=== PATIENT | female | born 1940 | race Caucasian/White ===

== ENCOUNTER → 2017-12-20 | Outpatient (CLI) | payer MEDICARE, OTHER | LOC: CARD 14:52 | PROVIDERS: ATTEND Internal Medicine Cardiovascular Disease | DX: I10 Essential (primary) hypertension (principal); D64.9 Anemia, unspecified; R06.00 Dyspnea, unspecified; R94.31 Abnormal electrocardiogram [ECG] [EKG] | CPT/HCPCS: 93306 ==

== ENCOUNTER → 2017-12-20 | Outpatient (CLI) | payer MEDICARE, OTHER ==
--- NOTE | 2017-12-20 13:22 | Diagnostic Imaging Report ---
EXAMINATION: PA and lateral Chest. INDICATION: Shortness of breath. COMPARISON: There are no prior studies available for comparison. FINDINGS: The heart size is at the upper limits of normal or slightly enlarged. There is a vague roughly 2 x 2 cm area of increased density along the periphery of the left lung base just superior to the left heart border. This finding is difficult to identify on the lateral view. This density could be related to an area of pneumonia/atelectasis. The possibility that this is secondary to a mass lesion would be less likely but should still be considered. Unless there are previous chest examinations available to demonstrate that this finding is stable, then CT of the chest would be recommended for further study. There is also a small 1.2 cm oval nodule in the right costophrenic angle. This is only well-visualized on the PA view as well. I suspect that this is a benign process, but this finding could also be further evaluated by either comparison to previous exams or a followup CT chest exam. The lungs are otherwise clear. There is no sign of failure, pneumonia, or pleural effusion. The mediastinum is not widened. The osseous structures are intact. IMPRESSION: 1. The roughly 2 x 2 cm area of increased density along the periphery of the left lung base is of uncertain etiology. There is also a small nodular density in the right costophrenic angle. Unless there are previous chest exams available to demonstrate that these findings are stable, then CT of the chest would be recommended for further study. 2. There is no acute cardiopulmonary abnormality noted otherwise. Dictated by: Dictated on workstation # [id number]
== END ==
LOC: RAD 11:59
PROVIDERS: ATTEND Nurse Practitioner Family
DX: J45.909 Unspecified asthma, uncomplicated (principal)
CPT/HCPCS: 71046

== ENCOUNTER → 2018-10-18 | Outpatient (CLI) | payer MEDICARE, OTHER ==
--- NOTE | 2018-10-18 12:50 | Diagnostic Imaging Report ---
PROCEDURE: CT chest without contrast. TECHNIQUE: Multiple contiguous axial images were obtained through the chest without the use of intravenous contrast. INDICATION: Shortness of air and chronic bronchitis. No prior studies are available for comparison. No axillary lymphadenopathy is seen. Hilar and mediastinal dilation is limited without intravenous contrast but no gross abnormality is identified. There are some coronary arterial calcifications present. No pericardial or pleural fluid is detected. Central airways are patent. Minimal nodularity in the right lung apex is identified. Several small nodules are present largest approximately 5 mm and indeterminate. There appears to be some infiltrate or atelectasis in the medial portion of the right middle lobe. Several tiny nodules in the superior segment right lower lobe are seen. There is some minimal bronchiectasis involving bilateral lower lobes with some associated linear parenchymal opacities consistent with some scarring or subsegmental atelectasis. There is some mild cylindrical bronchiectasis involving the medial right middle lobe as well and some bronchiectasis involving the lingula. No dominant mass is seen. Upper abdomen is unremarkable. IMPRESSION: There appears to be some bronchiectasis bilaterally with micro-nodularity in the right upper lobe apex as well as the right lower lobe with nonspecific areas of infiltrate or scarring/atelectasis in the right middle lobe, lingula and bilateral lower lobes. Followup could be performed to confirm stability. No other significant abnormality is seen. Dictated by: Dictated on workstation # [id number]
== END ==
LOC: RAD 11:29
PROVIDERS: ATTEND Nurse Practitioner Family
DX: J44.9 Chronic obstructive pulmonary disease, unspecified (principal)
CPT/HCPCS: 71250

== ENCOUNTER → 2018-10-24 | Outpatient (CLI) | payer MEDICARE, OTHER ==
--- NOTE | 2018-10-24 17:33 | Diagnostic Imaging Report ---
EXAM: RENAL ULTRASOUND DATE: October 24, 2018. COMPARISON: None. INDICATION: 78-year-old female, history of renal malignancy. PROCEDURE: Two-dimensional grayscale and color doppler examination of the kidneys is performed. FINDINGS: Right kidney: There is no sonographically demonstrated solid or cystic right renal mass. No hydronephrosis. The right kidney measures 9.8 cm x 4.2 x 5.8 cm. Left kidney: Left kidney is absent. There is no identified mass on ultrasound evaluation of the left renal fossa. Bladder: Unremarkable. IMPRESSION: 1. Unremarkable sonographic appearance of the right kidney. 2. No sonographically visible mass in the left renal fossa. 3. Unremarkable sonographic appearance of the urinary bladder. Dictated by: Dictated on workstation # [id number]
== END ==
LOC: RAD 12:15
PROVIDERS: ATTEND Urology
DX: Z85.528 Personal history of other malignant neoplasm of kidney (principal); Z90.5 Acquired absence of kidney
CPT/HCPCS: 76775

== ENCOUNTER → 2018-12-14 | Outpatient (CLI) | payer MEDICARE, OTHER ==
[2018-12-14 14:17] LABS: BASOPHILS % (AUTO) 0 % (0-10); EOSINOPHILS % (AUTO) 1 % (0-10); HEMATOCRIT 41 % (35-52); HEMOGLOBIN 13.6 G/DL (11.5-16.0); LYMPHOCYTES # (AUTO) 0.7 X 10^3 (1.0-4.0); LYMPHOCYTES % (AUTO) 15 % (12-44); MEAN CORPUSCULAR HEMOGLOBIN 30 PG (25-34); MEAN CORPUSCULAR HGB CONC 34 G/DL (32-36); MEAN CORPUSCULAR VOLUME 89 FL (80-99); MEAN PLATELET VOLUME 9.5 FL (7.4-10.4); MONOCYTES # (AUTO) 0.6 X 10^3 (0.0-1.0); MONOCYTES % (AUTO) 12 % (0-12); NEUTROPHILS # (AUTO) 3.4 X 10^3 (1.8-7.8); NEUTROPHILS % (AUTO) 72 % (42-75); PLATELET COUNT 245 10^3/uL (130-400); RED CELL DISTRIBUTION WIDTH 13.6 % (10.0-14.5); WHITE BLOOD COUNT 4.8 10^3/uL (4.3-11.0)
--- NOTE | 2018-12-14 18:48 | Diagnostic Imaging Report ---
INDICATION: Productive cough. Comparison made with prior examination 12/20/2017. FINDINGS: Heart size is normal. Mediastinum is unremarkable. There is no pleural effusion or pneumothorax. There is some unchanged bilateral perihilar scarring. IMPRESSION: No acute cardiopulmonary abnormality. Unchanged bilateral perihilar scarring. Dictated by: Dictated on workstation # [id number]
== END ==
LOC: RAD 14:02
PROVIDERS: ATTEND Nurse Practitioner Family
DX: J44.9 Chronic obstructive pulmonary disease, unspecified (principal); J98.4 Other disorders of lung; I27.0 Primary pulmonary hypertension
CPT/HCPCS: 36415; 71046; 85025; 87070; 87205

== ENCOUNTER → 2019-01-03 | Outpatient (CLI) | payer MEDICARE, OTHER ==
[~2019-01-03] MED LIST: ALBU1.25 INH; ASCO10006 PO; EST30C VG; FESO8TAB PO; FLUT9.9S NS; LACT1CAP8 PO; LEVO50TA6 PO; LOSA50TA63 PO; METH1POW32 MC; METO-370 PO; NITR100C PO; SPIR50TA4 PO; TRAM50TA2 PO; VENL150C PO
== END | disposition home or self-care (01) ==
LOC: PREOP 05:36
PROVIDERS: ATTEND Internal Medicine Critical Care Medicine
DX: Z01.818 Encounter for other preprocedural examination (principal)

== ENCOUNTER 2019-01-04 06:43 | Day surgery (SDC) | payer MEDICARE, OTHER ==
[~2019-01-04] VITALS: Ht 167.6 cm; Wt 63.5 kg
[2019-01-04] MEDS ORDERED: LIDOCAINE JELLY 2% 6 ML SYRINGE TOP ONE (06:44)
[2019-01-04] MEDS ORDERED: LIDOCAINE PF 1% 2 ML VIAL (OR ONLY) IJ ONE (06:44)
[2019-01-04] MEDS ORDERED: LIDOCAINE PF 2% 5 ML (XYLOCAINE) VIAL INJ ONE (06:44)
[2019-01-04] MEDS ORDERED: NS IV 500 ML 500 ML ONE (07:00)
[2019-01-04] MEDS ORDERED: NS IV 500 ML 500 ML IV PRN (07:05)
[2019-01-04] MEDS ORDERED: fentaNYL INJECTION 100 MCG/2 ML AMP IVP ONE (07:15)
[2019-01-04] MEDS ORDERED: NALOXONE 0.4 MG/ML 1 ML (NARCAN) VIAL IVP PRN (07:15)
[2019-01-04] MEDS ORDERED: FLUMAZENIL (ROMAZICON) 0.1 MG/ML 5 ML VIAL INJ PRN (07:15)
[2019-01-04] MEDS ORDERED: MIDAZOLAM 2 MG/2 ML (VERSED) VIAL IVP ONE (07:15)
[2019-01-04 07:26] VITALS: BP 155/91
[2019-01-04] MEDS ORDERED: MIDAZOLAM 2 MG/2 ML (VERSED) VIAL ONE ×3 (07:36)
[2019-01-04] MEDS ORDERED: fentaNYL INJECTION 100 MCG/2 ML AMP ONE (07:36)
--- NOTE | 2019-01-04 08:47 | Pulmonary Procedures ---
Pulmonary Procedures Date of Procedure Date of Service: Jan 04, 2019 Bronch Bronchoscopy with fluoroscopy right lung wash, bronchoalveolar lavage (BAL) RML , and ERIK, transbronchial brushes ERIK and RML for cytology and fungal . Preop DX bronchiectasis Postop DX: same Complications: none After informed consent obtained and formal time out pt was sedated using Fentanyl and Versed. Bronchoscope was advanced through the nare and vocal cords. 1% lidocaine was used to anesthetize vocal cords, epiglottis, jovita, and left/right main stem bronchus. An anatomical tour was undertaken down to the segmental bronchi bilaterally. No endobronchial lesions noted. Bronchoscopy with fluoroscopy right lung wash, bronchoalveolar lavage (BAL) RML, and ERIK, transbronchial brushes ERIK and RML for cytology and fungal . Pt tolerated procedure well. No complications noted. Stat CXR is pending. ROSSY AVINA DO Jan 04, 2019 08:47
--- NOTE | 2019-01-04 09:52 | Diagnostic Imaging Report ---
INDICATION: Status post bronchoscopy. TIME OF EXAM: 8:55 AM Correlation is made with prior study from 12/14/2018. FINDINGS: The heart is enlarged, but stable. No pneumothorax is identified status post bronchoscopy. No infiltrate is seen. There is no effusion. IMPRESSION: No evidence of pneumothorax. Dictated by: Dictated on workstation # [id number]
--- NOTE | 2019-01-04 12:15 | Diagnostic Imaging Report ---
Indication: Fluoroscopy for bronchoscopy Fluoroscopy was provided for Dr. Romero during bronchoscopy. 19 seconds of fluoroscopy was utilized. Impression: Fluoroscopy during bronchoscopy. Dictated by: Dictated on workstation # [id number]
== END 2019-01-04 09:55 | disposition home or self-care (01) ==
LOC: ENDO 06:43
PROVIDERS: ATTEND Internal Medicine Critical Care Medicine
DX: J47.9 Bronchiectasis, uncomplicated (principal); J44.9 Chronic obstructive pulmonary disease, unspecified; I27.20 Pulmonary hypertension, unspecified; Z79.899 Other long term (current) drug therapy
CPT/HCPCS: 71045; 87015; 87070; 87077; 87101; 87116; 87184; 87205; 87206; 88112; 88305; 88312; 94640

== ENCOUNTER → 2019-01-15 | Outpatient (CLI) | payer MEDICARE, OTHER | LOC: LAB 14:24 | PROVIDERS: ATTEND Nurse Practitioner Family | DX: R06.02 Shortness of breath (principal); J45.909 Unspecified asthma, uncomplicated; J44.9 Chronic obstructive pulmonary disease, unspecified; I27.0 Primary pulmonary hypertension; Z22.39 Carrier of other specified bacterial diseases | CPT/HCPCS: 36415; 82784 ==

== ENCOUNTER → 2019-03-20 | Outpatient (CLI) | payer MEDICARE, OTHER | LOC: RAD 15:11 | PROVIDERS: ATTEND Pediatrics | DX: Z12.31 Encounter for screening mammogram for malignant neoplasm of breast (principal) | CPT/HCPCS: 77067 ==

== ENCOUNTER → 2019-04-30 | Outpatient (CLI) | payer MEDICARE, OTHER ==
--- NOTE | 2019-04-30 14:10 | Diagnostic Imaging Report ---
PROCEDURE: CT chest without contrast. TECHNIQUE: Multiple contiguous axial images were obtained through the chest without the use of intravenous contrast. Auto Exposure Controls were utilized during the CT exam to meet ALARA standards for radiation dose reduction. INDICATION: Asthma, followup pulmonary nodule. COMPARISON: CT chest of 10/18/2018. FINDINGS: Lungs and airway: No endoluminal nodule within the trachea. Chronic subsegmental bronchiectasis within the medial basilar segments of the bilateral lower lobes. There is also subsegmental bronchiectasis within the lingula and middle lobe. Associated soft tissue nodularity in the left lower lobe bronchiectasis is unchanged. Additional scattered micronodularity is unchanged. No enlarging pulmonary nodule to suggest clinically active lung cancer. Pleura: No pleural effusion or pneumothorax. Heart and mediastinum: Visualized aspects of the thyroid are normal. No supraclavicular or axillary lymphadenopathy. No mediastinal, discrete hilar or juxtaphrenic lymphadenopathy. Stable enlargement of cardiac silhouette with trace pericardial effusion. Mild ectasia of the ascending aorta is also unchanged measuring up to 3.8 cm. Upper abdomen: No acute abnormality in the upper abdomen. Left nephrectomy. Musculoskeletal: No lytic or blastic skeletal lesions. IMPRESSION: 1. Unchanged multifocal chronic bronchiectasis and pulmonary micronodularity. This combination of findings likely due to sequelae of prior infection. 2. No features of clinically active lung cancer. 3. Unchanged mild ectasia of the ascending aorta measuring up to 3.8 cm. Dictated by: Dictated on workstation # [id number]
== END ==
LOC: RAD 11:25
PROVIDERS: ATTEND Nurse Practitioner Family
DX: J44.9 Chronic obstructive pulmonary disease, unspecified (principal); I77.810 Thoracic aortic ectasia; R91.1 Solitary pulmonary nodule; Z22.39 Carrier of other specified bacterial diseases
CPT/HCPCS: 71250

== ENCOUNTER → 2019-06-12 | Outpatient (CLI) | payer MEDICARE, OTHER ==
[2019-06-12 14:32] LABS: BASOPHILS % (AUTO) 0 % (0-10); EOSINOPHILS # (AUTO) 0.2 10^3/uL (0.0-0.3); EOSINOPHILS % (AUTO) 4 % (0-10); HEMATOCRIT 40 % (35-52); HEMOGLOBIN 13.4 G/DL (11.5-16.0); LYMPHOCYTES % (AUTO) 20 % (12-44); MEAN CORPUSCULAR HEMOGLOBIN 29 PG (25-34); MEAN CORPUSCULAR HGB CONC 33 G/DL (32-36); MEAN CORPUSCULAR VOLUME 87 FL (80-99); MEAN PLATELET VOLUME 9.3 FL (7.4-10.4); MONOCYTES # (AUTO) 0.6 X 10^3 (0.0-1.0); MONOCYTES % (AUTO) 12 % (0-12); NEUTROPHILS # (AUTO) 3.3 X 10^3 (1.8-7.8); NEUTROPHILS % (AUTO) 64 % (42-75); PLATELET COUNT 255 10^3/uL (130-400); WHITE BLOOD COUNT 5.2 10^3/uL (4.3-11.0)
== END ==
LOC: LAB 14:20
PROVIDERS: ATTEND Nurse Practitioner Family
DX: J42 Unspecified chronic bronchitis (principal); J47.9 Bronchiectasis, uncomplicated; I27.0 Primary pulmonary hypertension
CPT/HCPCS: 36415; 85025

== ENCOUNTER → 2020-04-16 | Outpatient (CLI) | payer MEDICARE, OTHER ==
[~2020-04-16] MED LIST changes: -METO-370 PO; +METO50TA7 PO; +RT-ALBUTEROL SULF 2.5 MG/3 ML PRE-MIX VIAL INH ONE; +RT-ALBUTEROL SULF 2.5 MG/3 ML PRE-MIX VIAL ONE; -TRAM50TA2 PO; +TRM50T PO
== END ==
LOC: RT 12:34
PROVIDERS: ATTEND Nurse Practitioner Family
DX: J44.9 Chronic obstructive pulmonary disease, unspecified (principal); I27.0 Primary pulmonary hypertension
CPT/HCPCS: 94060; 94726; 94729

== ENCOUNTER 2021-01-12 09:16 | Emergency (ER) | payer MEDICARE, OTHER ==
[~2021-01-12] VITALS: Ht 167 cm; Wt 75.0 kg
[~2021-01-12 09:16] MED LIST changes: +ASCO100024 PO; -ASCO10006 PO; -RT-ALBUTEROL SULF 2.5 MG/3 ML PRE-MIX VIAL INH ONE; -RT-ALBUTEROL SULF 2.5 MG/3 ML PRE-MIX VIAL ONE
[2021-01-12] MEDS ORDERED: NS IV 1000 ML 1,000 ML IV SCH (09:45)
[2021-01-12 09:57] LABS: HEMATOCRIT 40 % (35-52); HEMOGLOBIN 13.1 G/DL (11.5-16.0); MEAN CORPUSCULAR HEMOGLOBIN 30 PG (25-34); MEAN CORPUSCULAR HGB CONC 33 G/DL (32-36); MEAN CORPUSCULAR VOLUME 89 FL (80-99); WHITE BLOOD COUNT 5.8 10^3/uL (4.3-11.0)
[2021-01-12 09:58] LABS: BASOPHILS # (AUTO) 0.1 10^3/uL (0.0-0.1); BASOPHILS % (AUTO) 1 % (0-10); EOSINOPHILS # (AUTO) 0.2 10^3/uL (0.0-0.3); EOSINOPHILS % (AUTO) 3 % (0-10); LYMPHOCYTES # (AUTO) 1.8 X 10^3 (1.0-4.0); LYMPHOCYTES % (AUTO) 31 % (12-44); MEAN PLATELET VOLUME 9.8 FL (7.4-10.4); MONOCYTES # (AUTO) 0.6 X 10^3 (0.0-1.0); MONOCYTES % (AUTO) 11 % (0-12); NEUTROPHILS # (AUTO) 3.1 X 10^3 (1.8-7.8); NEUTROPHILS % (AUTO) 54 % (42-75); PLATELET COUNT 277 10^3/uL (130-400)
[2021-01-12 10:21] LABS: ALBUMIN 3.6 GM/DL (3.2-4.5); BILIRUBIN,TOTAL 0.2 MG/DL (0.1-1.0); CREATININE SERUM 1.23 MG/DL (0.60-1.30); MAGNESIUM 1.9 MG/DL (1.6-2.4); POTASSIUM 3.6 MMOL/L (3.6-5.0); TOTAL PROTEIN 6.2 GM/DL (6.4-8.2)
--- NOTE | 2021-01-12 10:51 | ED Syncope ---
General Chief Complaint: Dizziness/Syncope Stated Complaint: SYNCOPE Nursing Triage Note: brought in by EMS for syncopal episode. Was at [facility] and was assisted to ground by staff. Did not hit head. Is unsure how long she was unconscious. Was given oral glucose by ems staff for blood glucose of 62. Had syncopal episode about two months ago while going to the bathroom. Has hx of dizziness but states it was made better when one of her blood pressure meds was discontinued. Is alert and oriented x 4 upon arrival to ED. History of Present Illness Date Seen by Provider: Jan 12, 2021 Time Seen by Provider: 09:15 Initial Comments Patient is a 80-year-old female who presents with witnessed syncopal episode. Patient states she felt dizzy and lightheaded while standing at the local [employer]. She was lowered to the floor did not hit her self and does not have any injury or pain complaint. Her symptoms have since resolved. Her Accu-Chek per EMS was 62. Patient is not a diabetic and denies prior hypoglycemic episodes. She had a light snack earlier this morning. Patient states she has had dizzy and lightheaded episodes and recently had a medication discontinued after one of her 3 blood pressure medications. Patient denies chest pain palpitations, headache, shortness of breath extremity weakness or loss sensation prior to syncopal episodes. Syncopal episode was brief. She did not have any urinary or bladder incontinence there was no witnessed seizure activity. No other acute symptoms or complaints. Timing/Prior Episodes: Other Symptoms Prior to Episode: Lightheadedness, Other Precipitating Factors: Standing Allergies and Home Medications Allergies Coded Allergies: Penicillins (Unverified Allergy, Severe, RASH, 03/06/18) Home Medications Albuterol Sulfate 1.25 Mg/3 Ml Vial.neb, 1.25 MG INH DAILY, (Reported) Ascorbic Acid 1,000 Mg Tablet, 1,000 MG PO BID, (Reported) Fesoterodine Fumarate 8 Mg Tab.er.24h, 8 MG PO HS, (Reported) Fluticasone Propionate 9.9 Ml [place].susp, 2 SPRAY NS BID PRN for CONGESTION, (Reported) 2 SPRAYS PER NOSTRIL DAILY X 2 DAYS THEN 1 SPRAY DAILY Levothyroxine Sodium 50 Mcg Tablet, 50 MCG PO DAILY, (Reported) Losartan Potassium 50 Mg Tablet, 50 MG PO DAILY, (Reported) Methenamine 1 Gm Powder, 1 GM MC BID, (Reported) Metoprolol Succinate 50 Mg Tab.er.24h, 50 MG PO DAILY, (Reported) Nitrofurantoin Macrocrystal 100 Mg Capsule, 100 MG PO MoWeFr, (Reported) Spironolactone 50 Mg Tablet, 50 MG PO DAILY, (Reported) Tramadol HCl 50 Mg Tablet, 100 MG PO Q6H PRN for PAIN-MILD TO MODERATE, (Reported) Venlafaxine HCl 150 Mg Cap.er.24h, 150 MG PO BID, (Reported) Patient Home Medication List Home Medication List Reviewed: Yes Review of Systems Constitutional: see HPI EENTM: see HPI Respiratory: see HPI Cardiovascular: see HPI Gastrointestinal: see HPI Genitourinary: see HPI Musculoskeletal: see HPI Skin: see HPI Psychiatric/Neurological: See HPI All Other Systems Reviewed Negative Unless Noted: Yes Past Vmwztpp-Sazawd-Dmilbb Hx Past Med/Social Hx: Reviewed Nursing Past Med/Soc Hx Patient Social History Alcohol Use: Denies Use Smoking Status: Never a Smoker 2nd Hand Smoke Exposure: Yes Recent Infectious Disease Expo: No Recent Hopitalizations: No Immunizations Up To Date Tetanus Booster (TDap): Unknown Date of Pneumonia Vaccine: Jan 04, 2014 Date of Influenza Vaccine: Sep 03, 2018 Seasonal Allergies Seasonal Allergies: No Past Medical History Surgeries: Yes Hysterectomy, Nephrectomy, Orthopedic Respiratory: Yes Asthma, COPD Currently Using CPAP: No Currently Using BIPAP: No Cardiac: Yes Hypertension, Syncope Neurological: No 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 Sexually Transmitted Disease: No HIV/AIDS: No Genitourinary: Yes (HAD CANCER OF KIDNEY) UTI-Chronic Gastrointestinal: No Musculoskeletal: No Endocrine: Yes Hypothyroidsim HEENT: No Loss of Vision: Bilateral Hearing Impairment: Denies Cancer: Yes Kidney Did You Recieve Any Treatments: No What Type of Treatment Did You: Surgical Intervention Psychosocial: Yes Depression Integumentary: No Blood Disorders: No Physical Exam Vital Signs Vital Signs - First Documented 01/12/21 09:18 Temp 36.5 Pulse 68 Resp 16 B/P (MAP) 122/53 (76) Pulse Ox 96 Capillary Refill : Less Than 3 Seconds Height, Weight, BMI Height: 5'6.00" Weight: 140lbs. 0.0oz. [id number]; 26.00 BMI Method: General Appearance: No Apparent Distress HEENT: PERRL/EOMI, Normal ENT Inspection, Pharynx Normal Neck: Full Range of Motion, Non Tender, Supple Cardiovascular: No Edema Respiratory: Lungs Clear Gastrointestinal: Non Tender, Soft Back: Normal Inspection Extremities: Normal Capillary Refill, Normal Inspection Neurologic/Psychiatric: Alert, Oriented x3, wire coater II-XII Norm as Tested Motor/Sensory: No Motor Deficit Skin: Normal Color, Warm/Dry Focused Exam Sepsis Stage: Ruled Out Progress/Results/Core Measures Results/Orders Lab Results Laboratory Tests Test 01/12/21 09:28 01/12/21 09:36 Range/Units White Blood Count 5.8 4.3-11.0 10^3/uL Red Blood Count 4.44 4.35-5.85 10^6/uL Hemoglobin 13.1 11.5-16.0 G/DL Hematocrit 40 35-52 % Mean Corpuscular Volume 89 80-99 FL Mean Corpuscular Hemoglobin 30 25-34 PG Mean Corpuscular Hemoglobin Concent 33 32-36 G/DL Red Cell Distribution Width 12.7 10.0-14.5 % Platelet Count 277 130-400 10^3/uL Mean Platelet Volume 9.8 7.4-10.4 FL Immature Granulocyte % (Auto) 0 % Neutrophils (%) (Auto) 54 42-75 % Lymphocytes (%) (Auto) 31 12-44 % Monocytes (%) (Auto) 11 0-12 % Eosinophils (%) (Auto) 3 0-10 % Basophils (%) (Auto) 1 0-10 % Neutrophils # (Auto) 3.1 1.8-7.8 X 10^3 Lymphocytes # (Auto) 1.8 1.0-4.0 X 10^3 Monocytes # (Auto) 0.6 0.0-1.0 X 10^3 Eosinophils # (Auto) 0.2 0.0-0.3 10^3/uL Basophils # (Auto) 0.1 0.0-0.1 10^3/uL Immature Granulocyte # (Auto) 0.0 0.0-0.1 10^3/uL Sodium Level 138 135-145 MMOL/L Potassium Level 3.6 3.6-5.0 MMOL/L Chloride Level 101 98-107 MMOL/L Carbon Dioxide Level 25 21-32 MMOL/L Anion Gap 12 5-14 MMOL/L Blood Urea Nitrogen 15 7-18 MG/DL Creatinine 1.23 0.60-1.30 MG/DL Estimat Glomerular Filtration Rate 42 BUN/Creatinine Ratio 12 Glucose Level 86 70-105 MG/DL Calcium Level 9.0 8.5-10.1 MG/DL Corrected Calcium 9.3 8.5-10.1 MG/DL Magnesium Level 1.9 1.6-2.4 MG/DL Total Bilirubin 0.2 0.1-1.0 MG/DL Aspartate Amino Transf (AST/SGOT) 16 5-34 U/L Alanine Aminotransferase (ALT/SGPT) 12 0-55 U/L Alkaline Phosphatase 111 40-136 U/L Total Protein 6.2 L 6.4-8.2 GM/DL Albumin 3.6 3.2-4.5 GM/DL Glucometer 84 70-110 MG/DL My Orders Orders - CASSIDY RUIZ DO Cbc With Automated Diff (01/12/21 09:35) Comprehensive Metabolic Panel (01/12/21 09:35) Continuous Ekg Monitoring (01/12/21 09:35) Chest 1 View Ap/Pa Only (01/12/21 09:35) Orthostatic Vital Signs (12-19 (01/12/21 09:35) Thyroid Stimulating Hormone (01/12/21 09:35) Magnesium (01/12/21 09:35) Ns Iv 1000 Ml (Sodium Chloride 0.9%) (01/12/21 09:45) Vital Signs/I&O 01/12/21 01/12/21 09:18 09:51 Temp 36.5 Pulse 68 62 67 75 Resp 16 B/P (MAP) 122/53 (76) 119/70 92/60 102/78 Pulse Ox 96 Blood Pressure Mean: 76 Departure Communication (Admissions) EKG reviewed, no acute ST segment elevation. Chest x-ray: No acute cardiopulmonary disease. Patient with witnessed near syncopal episode. No chest pain palpitations or arrhythmia in the emergency department. No witnessed seizure activity. Patient states she feels lightheaded and symptomatic after taking blood pressure medications which she did earlier this morning. Symptoms do reproduce with standing. IV fluids given. Will defer further medical work-up and management to patient's PCP. Return precautions reviewed. Patient verbalizes understanding agree with all discharge instructions prior to departure. Impression Primary Impression: Syncope Disposition: HOME, SELF-CARE Condition: Stable Departure-Patient Inst. Decision time for Depature: 10:55 Referrals: DELMY ROACH MD (PCP/Family) Primary Care Physician Patient Instructions: Syncope (Fainting) (DC) Add. Discharge Instructions: You were evaluated in the emergency department for fainting episode. The exact cause of your symptoms has not been determined but may be related to blood pressure medication or heart disease. Please contact your PCP and schedule a follow-up appointment later this week. In meantime if you develop new or worsening symptoms, return to the emergency department. All discharge instructions reviewed with patient and/or family. Voiced understanding. CASSIDY RUIZ DO Jan 12, 2021 10:51
--- NOTE | 2021-01-12 10:56 | Diagnostic Imaging Report ---
INDICATION: Shortness of breath. History of COPD. Also history of renal cancer. COMPARISON: CT scan of 04/30/2019. EXAMINATION: Portable chest. FINDINGS: The obstructive interstitial lung disease is again demonstrated. Bronchiectasis with scarring and atelectasis in the right middle lobe again noted. Several small soft tissue nodules are noted in the right middle lobe as well. The soft tissue nodule in the right costophrenic angle is not visualized on portable film as it is below the diaphragm. There is also bronchiectasis along the medial aspect of the right and left lower lobes with some scarring which is unchanged. The heart is not enlarged. No pneumothorax or pleural effusion. IMPRESSION: 1. Chronic changes noted of the right middle lobe and lower lobes bilaterally with bronchiectasis and scarring. 2. Small nodules noted in the right middle lobe, unchanged. No new abnormality is demonstrated. Dictated by: Dictated on workstation # [id number]
[2021-01-12 11:08] VITALS: BP 121/55
== END 2021-01-12 11:08 | disposition home or self-care (01) ==
LOC: EDUNIT# 09:16 → ER FS 09:18
DX: R55 Syncope and collapse (principal); J44.9 Chronic obstructive pulmonary disease, unspecified; I10 Essential (primary) hypertension; F32.9 Major depressive disorder, single episode, unspecified; E03.9 Hypothyroidism, unspecified; Z88.0 Allergy status to penicillin; Z85.528 Personal history of other malignant neoplasm of kidney; Z77.22 Contact with and (suspected) exposure to environmental tobacco smoke (acute) (chronic); Z79.890 Hormone replacement therapy
CPT/HCPCS: 36415; 71045; 80053; 82962; 83735; 84443; 85025; 93005

== ENCOUNTER 2021-04-14 13:52 | Observation (INO) | payer MEDICARE, OTHER ==
[~2021-04-14] VITALS: Ht 167 cm; Wt 69.0 kg
[~2021-04-14 13:52] MED LIST changes: -FLUT9.9S NS; +FLUT9.9S NSEACH
[2021-04-14 14:10] LABS: BASOPHILS # (AUTO) 0.1 10^3/uL (0.0-0.1); BASOPHILS % (AUTO) 1 % (0-10); EOSINOPHILS # (AUTO) 0.2 10^3/uL (0.0-0.3); EOSINOPHILS % (AUTO) 4 % (0-10); HEMATOCRIT 47 % (35-52); HEMOGLOBIN 15.1 G/DL (11.5-16.0); LYMPHOCYTES # (AUTO) 1.6 X 10^3 (1.0-4.0); LYMPHOCYTES % (AUTO) 26 % (12-44); MEAN CORPUSCULAR HEMOGLOBIN 28 PG (25-34); MEAN CORPUSCULAR HGB CONC 32 G/DL (32-36); MEAN CORPUSCULAR VOLUME 88 FL (80-99); MEAN PLATELET VOLUME 9.4 FL (7.4-10.4); MONOCYTES # (AUTO) 0.6 X 10^3 (0.0-1.0); MONOCYTES % (AUTO) 10 % (0-12); NEUTROPHILS # (AUTO) 3.6 X 10^3 (1.8-7.8); NEUTROPHILS % (AUTO) 59 % (42-75); PLATELET COUNT 309 10^3/uL (130-400)
[2021-04-14] MEDS ORDERED: ALPRAZolam 0.25 MG (XANAX) TAB PO ONE (14:15)
--- NOTE | 2021-04-14 14:28 | ED General ---
General Stated Complaint: CHEST PAIN; SOB Source of Information: Patient Exam Limitations: No Limitations History of Present Illness Date Seen by Provider: Apr 14, 2021 Time Seen by Provider: 13:50 Initial Comments Patient is a 80-year-old female with history of hypertension who presents with epigastric discomfort radiating to left shoulder blade starting last evening and lasting several hours. Pain was described as dull and low-grade and rated a 2 out of 10. No medications were taken prior to ED arrival.Patient is currently pain free Patient also reports intermittent dizziness with standing and near syncope for 2 days. Compliant with blood pressure medications. Denies headache, blurred vision, extremity weakness or loss of sensation or loss of balance. . Symptoms were associated with shortness of breath and increased anxiety. Denies exertional chest pain, shortness of breath, abdominal pain, fever chills, sweats. No leg pain or swelling. No other acute symptoms or complaints. Timing/Duration: 12 Hours Severity: Mild Modifying Factors: improves with Other Associated Systoms: Other Allergies and Home Medications Allergies Coded Allergies: Penicillins (Unverified Allergy, Severe, RASH, 03/06/18) Home Medications Albuterol Sulfate 1.25 Mg/3 Ml Vial.neb, 1.25 MG INH DAILY, (Reported) Ascorbic Acid 1,000 Mg Tablet, 1,000 MG PO BID, (Reported) Fesoterodine Fumarate 8 Mg Tab.er.24h, 8 MG PO HS, (Reported) Fluticasone Propionate 9.9 Ml [place].susp, 2 SPRAY NS BID PRN for CONGESTION, (Reported) 2 SPRAYS PER NOSTRIL DAILY X 2 DAYS THEN 1 SPRAY DAILY Levothyroxine Sodium 50 Mcg Tablet, 50 MCG PO DAILY, (Reported) Losartan Potassium 50 Mg Tablet, 50 MG PO DAILY, (Reported) Methenamine 1 Gm Powder, 1 GM MC BID, (Reported) Metoprolol Succinate 50 Mg Tab.er.24h, 50 MG PO DAILY, (Reported) Nitrofurantoin Macrocrystal 100 Mg Capsule, 100 MG PO MoWeFr, (Reported) Spironolactone 50 Mg Tablet, 50 MG PO DAILY, (Reported) Tramadol HCl 50 Mg Tablet, 100 MG PO Q6H PRN for PAIN-MILD TO MODERATE, (Reported) Venlafaxine HCl 150 Mg Cap.er.24h, 150 MG PO BID, (Reported) Patient Home Medication List Home Medication List Reviewed: Yes Review of Systems Review of Systems Constitutional: see HPI EENTM: see HPI Respiratory: see HPI Cardiovascular: see HPI Gastrointestinal: see HPI Genitourinary: see HPI Musculoskeletal: see HPI Skin: see HPI Psychiatric/Neurological: See HPI Hematologic/Lymphatic: See HPI Immunological/Allergic: see HPI All Other Systems Reviewed Negative Unless Noted: Yes Past Ikijnbw-[place]-Mfybrq Hx Past Med/Social Hx: Reviewed Nursing Past Med/Soc Hx Patient Social History 2nd Hand Smoke Exposure: Yes Recent Hopitalizations: No Immunizations Up To Date Tetanus Booster (TDap): Unknown Date of Pneumonia Vaccine: Jan 04, 2014 Date of Influenza Vaccine: Sep 03, 2018 Seasonal Allergies Seasonal Allergies: No Past Medical History Surgeries: Yes Hysterectomy, Nephrectomy, Orthopedic Respiratory: Yes Asthma, COPD Currently Using CPAP: No Currently Using BIPAP: No Cardiac: Yes Hypertension, Syncope Neurological: No 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 0.0oz. 63.189194fd; 26.00 BMI Method: General Appearance: No Apparent Distress, Anxious Eyes: Bilateral Eye Normal Inspection, Bilateral Eye PERRL HEENT: PERRL/EOMI, Normal ENT Inspection, Pharynx Normal Neck: Supple Respiratory: Lungs Clear Cardiovascular: Regular Rate, Rhythm, No Edema, No Gallop Gastrointestinal: Non Tender, Soft Back: Normal Inspection, No CVA Tenderness Neurologic/Psychiatric: Alert, Oriented x3 Focused Exam Sepsis Stage: Ruled Out Progress/Results/Core Measures Suspected Sepsis SIRS Temperature: Pulse: Respiratory Rate: Laboratory Tests 04/14/21 13:57: Blood Pressure / Mean: Laboratory Tests 04/14/21 13:57: Results/Orders Lab Results Laboratory Tests Test 04/14/21 13:57 Range/Units My Orders Orders - CASSIDY RUIZ DO Cbc With Automated Diff (04/14/21 14:04) Comprehensive Metabolic Panel (04/14/21 14:04) Troponin I Fs (04/14/21 14:04) Chest 1 View Ap/Pa Only (04/14/21 14:04) Ekg-Prn For Chest Pain Or Rhyt (04/14/21 14:04) Alprazolam Tablet (Xanax Tablet) (04/14/21 14:15) Vital Signs/I&O Capillary Refill : Departure Communication (Admissions) EKG: Sinus rhythm, rate 98, left atrial enlargement, right bundle branch block, left anterior fascicular block, nondescript ST-T wave changes. Chest x-ray: No acute cardiopulmonary disease. Intermittent chest pain for 2 days with dizziness resolved prior to ED arrival. EKG nonspecific changes, troponin negative. Xanax given for anxiety. Will admit patient to [facility] for further cardiac evaluation. Impression Primary Impression: Chest pain Disposition: XFER SHT-TRM HOSP Condition: Stable Admissions Decision to Admit Reason: Admit from ER (General) Decision to Admit/Date: Apr 14, 2021 Time/Decision to Admit Time: 14:51 Departure-Patient Inst. Referrals: DELMY ROACH MD (PCP/Family) Primary Care Physician CASSIDY RUIZ DO Apr 14, 2021 14:28
[2021-04-14 14:32] LABS: ALANINE AMINOTRANSFERASE 11 U/L (0-55); ALBUMIN 4.1 GM/DL (3.2-4.5); ALKALINE PHOSPHATASE 134 U/L (40-136); BILIRUBIN,TOTAL 0.3 MG/DL (0.1-1.0); BUN/CREATININE RATIO 16; CALCIUM 9.9 MG/DL (8.5-10.1); CARBON DIOXIDE 25 MMOL/L (21-32); CHLORIDE 98 MMOL/L (98-107); CREATININE SERUM 1.07 MG/DL (0.60-1.30); GFR ESTIMATED 49; GLUCOSE 99 MG/DL (70-105); POTASSIUM 3.7 MMOL/L (3.6-5.0); SODIUM 136 MMOL/L (135-145); TOTAL PROTEIN 7.1 GM/DL (6.4-8.2)
--- NOTE | 2021-04-14 14:39 | Diagnostic Imaging Report ---
INDICATION: Chest pain. TECHNIQUE: Frontal chest obtained at 01:57 p.m. and compared to 01/12/2021. FINDINGS: Heart is borderline in size. There are COPD changes with hyperinflation. There is no focal infiltrate or pneumothorax or pleural fluid. IMPRESSION: COPD changes with hyperinflation. Mild cardiomegaly. No acute process in the chest. Dictated by: Dictated on workstation # [id number]
[2021-04-14] MEDS ORDERED: CARV3.122 PO (14:54)
[2021-04-14] MEDS ORDERED: ALBUTEROL (14:54)
[2021-04-14] MEDS ORDERED: PERP1TAB5 PO (14:54)
[2021-04-14] MEDS ORDERED: ZFR20T PO (14:54)
[2021-04-14] MEDS ORDERED: CETI10TA17 PO (14:54)
[2021-04-14] MEDS ORDERED: vitamin D PO (14:54)
[2021-04-14] MEDS ORDERED: FLUT1BLS9 (14:54)
[2021-04-14] MEDS ORDERED: DESM0.1T5 PO (14:54)
[2021-04-14] MEDS ORDERED: ASCO100024 PO (14:54)
[2021-04-14] MEDS ORDERED: ASPIRIN 81 MG CHEW (CHILDREN'S ASA) PO ONE (15:00)
[2021-04-14 16:35] VITALS: BP 178/89
[2021-04-14] MEDS ORDERED: ONDANSETRON 4 MG/2 ML (SDV) Z0FRAN ONE (17:09)
[2021-04-14] MEDS ORDERED: ZOLP10TA PO (18:42)
[2021-04-14] MEDS ORDERED: FLUT1BLS9 IH ×2 (18:44→18:46)
[2021-04-14] MEDS ORDERED: METH1TAB21 PO (18:44)
[2021-04-14] MEDS ORDERED: CATHETER FLUSH 10 ML SYR IV PRN (18:45)
[2021-04-14] MEDS ORDERED: ALBU2.5V4 INH (18:52)
[2021-04-14] MEDS ORDERED: NON-FORMULARY MEDICATION 1 EA EA (Zolpidem Tartrate (Ambien) 10 MG) PO PRN (19:00)
[2021-04-14] MEDS ORDERED: NON-FORMULARY MEDICATION 1 EA EA (Cetirizine HCl 10 MG) PO SCH (19:00)
[2021-04-14] MEDS ORDERED: NON-FORMULARY MEDICATION 1 EA EA (Fluticasone Propionate (Flonase Allergy Relief) 1 SPRAY) NS PRN (19:00)
[2021-04-14] MEDS ORDERED: LORATADINE (CLARITIN) 10 MG TAB PO PRN (19:15)
[2021-04-14] MEDS ORDERED: FLUTICASONE NASAL SPRAY (FLONASE) 16 GM BTL NS PRN (19:15)
[2021-04-14] MEDS ORDERED: ZOLPIDEM 5 MG (AMBIEN) TAB PO PRN (19:15)
[2021-04-14 20:16] VITALS: BP 144/80
[2021-04-14] MEDS ORDERED: HYDROcodone/APAP 5 MG/325 MG (LORTAB) TAB PO PRN (20:30)
[2021-04-14] MEDS: FAMOTIDINE 20MG/2ML IV (PEPCID) IV SCH (20:52)
[2021-04-14] MEDS: MONTELUKAST 10 MG (SINGULAIR) TAB PO SCH (20:52)
[2021-04-14] MEDS: PERPHENAZINE 2 MG (TRILAFON) TAB PO SCH (20:52)
[2021-04-14] MEDS: AMITRIPTYLINE 25 MG (ELAVIL) TAB PO SCH (20:52)
[2021-04-14] MEDS ORDERED: ZAFIRLUKAST (ACCOLATE) 20 MG TAB PO SCH (21:00)
[2021-04-14] MEDS ORDERED: NON-FORMULARY MEDICATION 1 EA EA (Venlafaxine HCl (Effexor Xr) 150 MG) PO SCH (21:00)
[2021-04-14] MEDS ORDERED: DESMOPRESSIN ACETATE 0.1 MG PO SCH (21:00)
[2021-04-14] MEDS: RT-ALBUTEROL SULF 2.5 MG/3 ML PRE-MIX VIAL INH SCH (22:13)
[2021-04-14] MEDS: CATHETER FLUSH 10 ML SYR IV SCH (23:51)
[2021-04-15] VITALS (7 sets, daily range): BP systolic 115–135; BP diastolic 59–86
[2021-04-15 05:28] LABS: BASOPHILS # (AUTO) 0.1 10^3/uL (0.0-0.1); BASOPHILS % (AUTO) 1 % (0-10); EOSINOPHILS # (AUTO) 0.2 10^3/uL (0.0-0.3); EOSINOPHILS % (AUTO) 4 % (0-10); HEMATOCRIT 41 % (35-52); HEMOGLOBIN 13.6 g/dL (11.5-16.0); LYMPHOCYTES # (AUTO) 1.3 10^3/uL (1.0-4.0); LYMPHOCYTES % (AUTO) 26 % (12-44); MEAN CORPUSCULAR HEMOGLOBIN 29 pg (25-34); MEAN CORPUSCULAR HGB CONC 33 g/dL (32-36); MEAN CORPUSCULAR VOLUME 87 fL (80-99); MEAN PLATELET VOLUME 9.6 fL (9.0-12.2); MONOCYTES # (AUTO) 0.5 10^3/uL (0.0-1.0); MONOCYTES % (AUTO) 11 % (0-12); NEUTROPHILS # (AUTO) 2.9 10^3/uL (1.8-7.8); NEUTROPHILS % (AUTO) 58 % (42-75); PLATELET COUNT 254 10^3/uL (130-400)
[2021-04-15 05:44] LABS: ALBUMIN 3.5 GM/DL (3.2-4.5); POTASSIUM 3.8 MMOL/L (3.6-5.0)
[2021-04-15 05:45] LABS: CALCIUM 9.2 MG/DL (8.5-10.1)
[2021-04-15 05:48] LABS: BILIRUBIN,TOTAL 0.4 MG/DL (0.1-1.0)
[2021-04-15] MEDS: LEVOTHYROXINE 50 MCG (LEVOTHROID) TAB PO SCH (06:06)
[2021-04-15] MEDS: CATHETER FLUSH 10 ML SYR IV SCH ×3 (06:06→20:56)
[2021-04-15] MEDS: RT-ALBUTEROL SULF 2.5 MG/3 ML PRE-MIX VIAL INH SCH ×4 (07:15→18:36)
--- NOTE | 2021-04-15 08:41 | Cardiology Progress Note ---
Objective-Cardiology Exam Last Set of Vital Signs Vital Signs 04/15/21 04/15/21 07:10 07:15 Temp 36.9 Pulse 71 Resp 18 B/P (MAP) 115/59 (77) Pulse Ox 94 O2 Delivery Room Air Capillary Refill : Less Than 3 Seconds I&O Intake and Output 04/15/21 00:00 Intake Total 610 ml Balance 610 ml Intake Oral 610 ml # Voids 2 Daily Weight Change No Results Lab Laboratory Tests 04/14/21 13:57 04/15/21 05:08 A/P-Cardiology Assessment/Plan Chest pain, nonspecific etiology, EKG showing no acute ST changes, cardiac enzymes negative. Risk factors for underlying CAD, planning for stress test for further evaluation Abnormal EKG with right bundle branch block and right atrial enlargement, history of bronchial asthma, 2-D echocardiogram revealed normal EF, PA pressure 50 mmHg. Continue to monitor. Pulmonary hypertension-most recent PA pressure 50 mmHg per 2-D echocardiogram done December 2017. Reevaluate 2D Echo Hypertension, restart home blood pressure medications. 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 Preoperative cardiac evaluation, overall patient is considered at low to intermediate risk for perioperative cardiac vascular complication, decision reg arding the surgery, risks versus benefit is deferred to the surgeon. Nonobstructive carotid artery stenosis per carotid duplex done 2017 Clinical Quality Measures AMI/AHF: ASA po Prior to arrival: ARGENTINA Vallejo Apr 15, 2021 08:41
[2021-04-15] MEDS: ASPIRIN 325 MG (5 GR) TABLET PO SCH (08:48)
[2021-04-15] MEDS: VENlafaxine XR 75 MG (EFFEXOR XR) CAP PO SCH ×2 (08:49→17:54)
[2021-04-15] MEDS ORDERED: SPIRONOLACTONE 25 MG (ALDACTONE) TAB PO SCH (09:00)
[2021-04-15] MEDS ORDERED: NON-FORMULARY MEDICATION 1 EA EA (Spironolactone 50 MG) PO SCH (09:00)
--- NOTE | 2021-04-15 09:52 | Short Stay Summary-Hospitalist ---
History of Present Illness HPI/Chief Complaint Pt is a 80yoCF with a PMH of asthma, HTN, hypothyroidism who presented to the ER due to chest pressure, dizziness, and fatigue. She states her symptoms started on 04/11 when she got very dizzy. She has had a history of this with some outpatient workup done. She did not fall or loss consciousness. Later that evening she developed chest pressure that felt like a bubble in her chest. It resolved on it's own but recurred a couple of times. She did not have pain at that time but then on 04/12 she developed actual chest pain that was minimal. She continued to feel dizzy and fatigued all weekend and so yesterday contacted her PCP Dr Hill who recommended she seek evaluation in the ER. She had a normal EKG and troponin but was admitted for chest pain rule out. This morning she states she is feeling well and has no complaints. Source: patient Date Seen 04/15/21 Time Seen by a Provider: 14:27 Attending Physician Aj Alejandra MD PCP Rickie Hill MD Referring Physician Date of Admission Apr 14, 2021 at 16:30 Home Medications & Allergies Home Medications Reviewed patient Home Medication Reconciliation performed by pharmacy medication reconciliations telecasting technician and/or nursing. Patients Allergies have been reviewed. Allergies Allergies Coded Allergies Penicillins (Unverified Allergy, Severe, RASH, 03/06/18) Past Yblvueo-Uhdihe-Jwjyhz Hx Patient Social History Employed/Student: retired Tobacco Use?: No Smoking Status: Never a Smoker Use of E-Cig and/or Vaping dev: No Substance use?: No Alcohol Use?: No Pt feels they are or have been: No Immunizations Up To Date Date of Influenza Vaccine: Jul 15, 2020 First/Initial COVID19 Vaccinat: FEBRUARY 03, 2021 Second COVID19 Vaccination Andrea: MARCH 06, 2021 Tetanus Booster (TDap): More Than 5 Years Hepatitis A: Yes Hepatitis B: Yes Date of Pneumonia Vaccine: Jan 04, 2014 Seasonal Allergies Seasonal Allergies: No Current Status status: No status: No Advance Directives: Yes Advance Directive Location: Family to bring in copy Communicates: Verbally Primary Language: Albanian Preferred Spoken Language: Turkish Sensory deficits: Vision impairment Implanted or Applied Medical D: None Past Medical History Surgeries: Hysterectomy, Nephrectomy, Orthopedic Asthma, COPD Currently Using CPAP: No Currently Using BIPAP: No Hypertension, 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 Sexually Transmitted Disease: No HIV/AIDS: No UTI-Chronic Hypothyroidsim Loss of Vision: Bilateral Hearing Impairment: Denies Kidney Did You Recieve Any Treatments: No What Type of Treatment Did You: Surgical Intervention Depression Blood Disorders: No Family Medical History Reviewed Nursing Family Hx Review of Systems Constitutional: No chills, No fever EENTM: no symptoms reported Respiratory: No cough Cardiovascular: see HPI Gastrointestinal: No abdominal pain, No constipation, No diarrhea, No nausea, No vomiting Genitourinary: no symptoms reported Musculoskeletal: no symptoms reported Skin: no symptoms reported Psychiatric/Neurological: No Symptoms Reported Physical Exam Physical Exam Vital Signs Vital Signs - First Documented Capillary Refill : Less Than 3 Seconds Height, Weight, BMI Height: 5'6.00" Weight: 140lbs. 0.0oz. 63.600300to; 24.74 BMI Method: General Appearance: No Apparent Distress, WD/WN Eyes: Bilateral Eye Normal Inspection, Bilateral Eye PERRL HEENT: PERRL/EOMI, Moist Mucous Membranes; No Scleral Icterus (L), No Scleral Icterus (R) Neck: Normal Inspection, Supple Respiratory: Lungs Clear, No Accessory Muscle Use, No Respiratory Distress Cardiovascular: Regular Rate, Rhythm, No Edema, No Murmur Gastrointestinal: Normal Bowel Sounds, Non Tender, Soft Back: Normal Inspection, No CVA Tenderness Extremity: Normal Capillary Refill, No Calf Tenderness, No Pedal Edema Neurologic/Psychiatric: Alert, Oriented x3, Normal Mood/Affect Results Results/Procedures Labs Laboratory Tests 04/14/21 13:57 04/15/21 05:08 Patient resulted labs reviewed. Imaging: Reviewed Imaging Report [facility] [place], [place] NAME: AM[facility]ENCHACA [facility] REC#: [id number] PT STATUS: ADM IN : 1940 PHYSICIAN: CASSIDY RUIZ DO ADMIT DATE: 04/14/21 Signed Date of Exam:04/14/21 CHEST 1 VIEW AP/PA ONLY INDICATION: Chest pain. TECHNIQUE: Frontal chest obtained at 01:57 p.m. and compared to 01/12/2021. FINDINGS: Heart is borderline in size. There are COPD changes with hyperinflation. There is no focal infiltrate or pneumothorax or pleural fluid. IMPRESSION: COPD changes with hyperinflation. Mild cardiomegaly. No acute process in the chest. Dictated by: Dictated on workstation # [id number] Dict: 04/14/21 1434 Trans: 04/14/21 1638 [id number] Interpreted by: EDWARD LEAVITT MD Electronically signed by: EDWARD LEAVITT MD 04/14/21 1638 Short Stay Diagnosis Discharge Diagnosis-Short Stay Admission Diagnosis Chest pain Final Discharge Diagnosis Chest pain Conclusion Plan Chest pain HTN Continue home meds Troponin negative x2 Cardiology consulted, plan for stress test Monitor on telemetry Asthma/COPD Continue home inhalers Doing well Anxiety/Depression Continue home meds Hypothyroidism Continue home meds DVT ppx: Lovenox Clinical Quality Measures Admission Status Admission Status: Observation (Was to be admitted to observation status but inadverantly put on inpatient, is appropriate for obs) AMI/AHF: ASA po Prior to arrival: No AJ ALEJANDRA MD Apr 15, 2021 09:52
[2021-04-15] MEDS ORDERED: REGADENOSON 0.4 MG/5 ML SYR (LEXISCAN) IV ONE (10:15)
[2021-04-15] MEDS ORDERED: ALBU18HF2 INH (10:28)
[2021-04-15] MEDS ORDERED: CHOL500049 PO (10:28)
[2021-04-15] MEDS ORDERED: IPRA3AMP31 NEB (10:28)
--- NOTE | 2021-04-15 13:21 | Consultation-Cardiology ---
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 Dizziness present intermittently for the last several months. It has persisted from minutes to hours. Also describes episodes of near-syncope lasting several seconds. These have been present also for the last several months. Last only a few seconds. Occur g enerally shortly after position change to upright position. Resolve after she falls or acquires a recumbent position. Generally preceded by a feeling of dizziness. Also report chest discomfort on 04/11/21: 2 episodes, one following a few min after the first one, midsternal and L parasternal, feeling of "bubble" in the chest, nonradiating, w/o aggravating or relieving factors, associated with dizziness, mild in intensity. No palp. No swelling. No malaise. No fever or chills. No recent wgt gain or wgt loss. Review of Systems-Cardiology Review of Systems Constitutional: As described under HPI Eyes: No vision change Ears/Nose/Throat: No ear discharge, No nasal drainage, No recent hearing loss, No ulcerations Respiratory: As described under HPI Cardiovascular: As described under HPI Gastrointestinal: No diarrhea, No nausea, No vomiting Genitourinary: No dysuria, No hematuria, No urine frequency changes Musculoskeletal: No back pain, No joint pain Skin: No rash, No ulcerations Psychiatric/Neurological: As described under HPI; No seizure, No focal weakness Hematologic: No bleeding abnormalities All Other Systems Reviewed Negative Unless Noted: Yes CSR-Vmzkoe-Wyyotx Hx Patient Social History Smoking Status: Never a Smoker 2nd Hand Smoke Exposure: Yes Have you traveled recently?: No Alcohol Use?: No Pt feels they are or have been: No Immunizations Up To Date Tetanus Booster (TDap): Unknown Date of Pneumonia Vaccine: Jan 04, 2014 Date of Influenza Vaccine: Jul 15, 2020 Past Medical History PMH As described under Assessment. Family Medical History Family Medical History: Does not report fam h/o early CAD or SCD Allergies and Home Medications Allergies Coded Allergies: Penicillins (Unverified Allergy, Severe, RASH, 03/06/18) Home Medications Albuterol Sulfate 18 Gm Hfa.aer.ad, 2 PUFF INH QID PRN for SHORTNESS OF BREATH, (Reported) Last Action: Reviewed Ascorbic Acid 1,000 Mg Tablet, 1,000 MG PO BID, (Reported) Last Action: Reviewed Carvedilol 3.125 Mg Tablet, 3.125 MG PO BID, (Reported) Last Action: Reviewed Cetirizine HCl 10 Mg Tablet, 10 MG PO DAILY PRN for ALLERGY SYMPTOMS, (Reported) Last Action: Reviewed Cholecalciferol (Vitamin D3) 1,250 Mcg Capsule, 2,500 MCG PO MONTHLY, (Reported) Last Action: Reviewed Desmopressin Acetate 0.1 Mg Tablet, 0.1 MG PO HS, (Reported) Last Action: Reviewed Estrogens Conjugated 30 Gm Cr, 1 INCH VG THREE TIMES A WEEK, (Reported) Last Action: Reviewed Fluticasone Propion/Salmeterol 1 Each Blst.w.dev, 1 PUFF IH BID, (Reported) Last Action: Reviewed Fluticasone Propionate 9.9 Ml [place].susp, 1 SPRAY NSEACH BID PRN for CONGESTION, (Reported) Last Action: Reviewed Ipratropium/Albuterol Sulfate 3 Ml Ampul.neb, 3 ML NEB QID, (Reported) Last Action: Reviewed Levothyroxine Sodium 50 Mcg Tablet, 50 MCG PO DAILY, (Reported) Last Action: Reviewed Methenamine Hippurate 1 Gm Tablet, 1 GM PO BID, (Reported) Last Action: Reviewed Perphenazine/Amitriptyline HCl 1 Each Tablet, 1 TAB PO HS, (Reported) Last Action: Reviewed Spironolactone 50 Mg Tablet, 50 MG PO DAILY, (Reported) Last Action: Reviewed Venlafaxine HCl 150 Mg Cap.er.24h, 150 MG PO BID, (Reported) Last Action: Reviewed Zafirlukast 20 Mg Tablet, 20 MG PO BID, (Reported) LAST FILLED 11-18-2019 #180/90 DAY SUPPLY Last Action: Reviewed Zolpidem Tartrate 10 Mg Tablet, 10 MG PO HS PRN for SLEEP, (Reported) Last Action: Reviewed Patient Home Medication List Home Medication List Reviewed: Yes Physical Exam-Cardiology Physical Exam Vital Signs/I&O 04/15/21 04/15/21 04/15/21 04/15/21 03:47 07:00 07:10 07:15 Temp 36.1 36.9 Pulse 74 68 71 Resp 16 18 B/P (MAP) 125/78 (94) 115/59 (77) Pulse Ox 94 93 94 O2 Delivery Room Air Room Air Room Air 04/15/21 04/15/21 04/15/21 08:00 11:17 11:58 Temp 36.6 Pulse 88 Resp 18 B/P (MAP) 133/65 (87) Pulse Ox 94 93 O2 Delivery Room Air Room Air Room Air 04/15/21 00:00 Intake Total 610 ml Balance 610 ml Capillary Refill : Less Than 3 Seconds Constitutional: AAO x 3, well-developed, well-nourished HEENT: EOMI, hearing is well preserved; No xanthelasmas are seen Neck: carotid pulses are 2 + bilaterally, with good upstrokes Respiratory: No accessory muscle use; other (good, bilateral air entry) Cardiovascular: regular rate-rhythm, S1 and S2, systolic murmur (faint HUY at card base) Gastrointestinal: No tender, No soft, No guarding, No rebound; audible bowel sounds Extremities: No clubbing, No cyanosis, No significant edema Neurologic/Psychiatric: alert, normal mood/affect, oriented x 3, other (moves all limbs equally) Skin: No rash on exposed areas, No ulcerations on exposed areas Data Review Labs Laboratory Tests 04/14/21 13:57: White Blood Count 6.0, Red Blood Count 5.32, Hemoglobin 15.1, Hematocrit 47, Mean Corpuscular Volume 88, Mean Corpuscular Hemoglobin 28, Mean Corpuscular Hemoglobin Concent 32, Red Cell Distribution Width 13.1, Platelet Count 309, Mean Platelet Volume 9.4, Immature Granulocyte % (Auto) 0, Neutrophils (%) (Auto) 59, Lymphocytes (%) (Auto) 26, Monocytes (%) (Auto) 10, Eosinophils (%) (Auto) 4, Basophils (%) (Auto) 1, Neutrophils # (Auto) 3.6, Lymphocytes # (Auto) 1.6, Monocytes # (Auto) 0.6, Eosinophils # (Auto) 0.2, Basophils # (Auto) 0.1, Immature Granulocyte # (Auto) 0.0, Sodium Level 136, Potassium Level 3.7, Chloride Level 98, Carbon Dioxide Level 25, Anion Gap 13, Blood Urea Nitrogen 17, Creatinine 1.07, Estimat Glomerular Filtration Rate 49, BUN/Creatinine Ratio 16, Glucose Level 99, Calcium Level 9.9, Corrected Calcium 9.8, Total Bilirubin 0.3, Aspartate Amino Transf (AST/SGOT) 16, Alanine Aminotransferase (ALT/SGPT) 11, Alkaline Phosphatase 134, Troponin I < 0.30, Total Protein 7.1, Albumin 4.1 04/14/21 19:40: Troponin I < 0.028 04/15/21 05:08: White Blood Count 5.0, Red Blood Count 4.72, Hemoglobin 13.6, Hematocrit 41, Mean Corpuscular Volume 87, Mean Corpuscular Hemoglobin 29, Mean Corpuscular Hemoglobin Concent 33, Red Cell Distribution Width 12.8, Platelet Count 254, Mean Platelet Volume 9.6, Immature Granulocyte % (Auto) 0, Neutrophils (%) (Auto) 58, Lymphocytes (%) (Auto) 26, Monocytes (%) (Auto) 11, Eosinophils (%) (Auto) 4, Basophils (%) (Auto) 1, Neutrophils # (Auto) 2.9, Lymphocytes # (Auto) 1.3, Monocytes # (Auto) 0.5, Eosinophils # (Auto) 0.2, Basophils # (Auto) 0.1, Immature Granulocyte # (Auto) 0.0, Sodium Level 137, Potassium Level 3.8, Chloride Level 103, Carbon Dioxide Level 24, Anion Gap 10, Blood Urea Nitrogen 13, Creatinine 1.00, Estimat Glomerular Filtration Rate 53, BUN/Creatinine Ratio 13, Glucose Level 104, Calcium Level 9.2, Corrected Calcium 9.6, Total Bilirubin 0.4, Aspartate Amino Transf (AST/SGOT) 16, Alanine Aminotransferase (ALT/SGPT) 10, Alkaline Phosphatase 94, Total Protein 6.0L, Albumin 3.5 Laboratory Tests 04/14/21 13:57 04/15/21 05:08 A/P-Cardiology Assessment/Admission Diagnosis Dizziness and near-syncope, mostly postural Nonspecific chest discomfort on 04/11/21 H/o hypertension. Currently running low-normal bp H/o COPD, reportedly due to exposure to secondhand smoke (no personal h/o smoking) Discussion and Recomendations * Has multiple, progressive symptoms of undetermined etiology * Intermittent low bp / postural hypotension is suspected. Stop beta-saul and diuretic * Echo to eval for structural heart disease * MPI to eval for CAD * Tele to eval for arrhythmia * I spoke with her in detail and answered CV-related questions Clinical Quality Measures AMI/AHF: ASA po Prior to arrival: MARIO Benitez MD FACP [facility] Apr 15, 2021 13:21
[2021-04-15] MEDS ORDERED: ENOXAPARIN 40 MG/0.4 ML (LOVENOX) SYR SQ SCH (15:00)
[2021-04-15] MEDS: RT--FLUTICASONE/SALMETEROL 232-14 (AIRDUO RespiCLICK) IH SCH (18:36)
[2021-04-15] MEDS: FAMOTIDINE 20MG/2ML IV (PEPCID) IV SCH (20:55)
[2021-04-15] MEDS: PERPHENAZINE 2 MG (TRILAFON) TAB PO SCH (20:55)
[2021-04-15] MEDS: AMITRIPTYLINE 25 MG (ELAVIL) TAB PO SCH (20:55)
[2021-04-15] MEDS: MONTELUKAST 10 MG (SINGULAIR) TAB PO SCH (20:55)
[2021-04-15] MEDS ORDERED: [UNRECOGNIZED DRUG - OTHER] IH SCH (21:00)
[2021-04-15] MEDS ORDERED: FLUTICASONE PROPION IH SCH (21:00)
[2021-04-15] MEDS ORDERED: SALMETEROL P IH SCH (21:00)
[2021-04-16 04:00] VITALS: BP 120/73
[2021-04-16 05:01] VITALS: BP 120/73
[2021-04-16] MEDS: RT-ALBUTEROL SULF 2.5 MG/3 ML PRE-MIX VIAL INH SCH ×3 (06:24→14:59)
[2021-04-16] MEDS: RT--FLUTICASONE/SALMETEROL 232-14 (AIRDUO RespiCLICK) IH SCH (06:25)
[2021-04-16] MEDS: LEVOTHYROXINE 50 MCG (LEVOTHROID) TAB PO SCH (06:34)
[2021-04-16] MEDS: CATHETER FLUSH 10 ML SYR IV SCH ×2 (06:35→14:42)
[2021-04-16 07:00] VITALS: BP 135/79
[2021-04-16] MEDS ORDERED: CATHETER FLUSH 10 ML SYR IV PRN (07:45)
[2021-04-16] MEDS ORDERED: REGADENOSON 0.4 MG/5 ML SYR (LEXISCAN) IV ONE (07:52)
[2021-04-16 08:16] VITALS: BP 137/98
[2021-04-16] MEDS: ASPIRIN 325 MG (5 GR) TABLET PO SCH (09:51)
[2021-04-16] MEDS: VENlafaxine XR 75 MG (EFFEXOR XR) CAP PO SCH (09:52)
--- NOTE | 2021-04-16 09:56 | Progress Note - Cardiology ---
Cardiology SOAP Progress Note Subjective: No c/o CP, palpitations, syncope or SOB Objective: I&O/Vital Signs 04/15/21 04/16/21 04/16/21 04/16/21 23:56 01:00 04:00 05:01 Temp 36.6 36.1 36.1 Pulse 85 86 82 82 Resp 18 16 16 B/P (MAP) 126/79 (95) 120/73 (89) 120/73 (89) Pulse Ox 92 95 95 O2 Delivery Room Air Room Air Room Air 04/16/21 04/16/21 04/16/21 04/16/21 06:25 07:00 07:00 08:16 Temp 36.2 Pulse 73 74 81 Resp 18 14 B/P (MAP) 135/79 (97) 137/98 (111) Pulse Ox 96 94 94 O2 Delivery Room Air Room Air Room Air 04/16/21 00:00 Intake Total 1410 ml Balance 1410 ml Weight (Pounds): 140 Weight (Ounces): 0.0 Weight (Calculated Kilograms): 63.267818 Constitutional: AAO x 3, well-developed, well-nourished Respiratory: No accessory muscle use; other (good, bilateral air entry) Cardiovascular: regular rate-rhythm, S1 and S2, systolic murmur (faint HUY at card base) Gastrointestional: No tender, No soft, No guarding, No rebound; audible bowel sounds Extremities: No clubbing, No cyanosis, No significant edema Neurologic/Psychiatric: alert, normal mood/affect, oriented x 3, other (moves all limbs equally) Skin: No rash on exposed areas, No ulcerations on exposed areas Results/Procedures: Labs Laboratory Tests 04/14/21 13:57 04/15/21 05:08 A/P: Assessment: Dizziness and near-syncope, mostly postural - no further episodes Nonspecific chest discomfort on 04/11/21 H/o hypertension. Currently running low-normal bp H/o COPD, reportedly due to exposure to secondhand smoke (no personal h/o smoking) Plan: * Has multiple, progressive symptoms of undetermined etiology * Intermittent low bp / postural hypotension is suspected. Stop beta-saul and diuretic - improved * Echo to eval for structural heart disease - pending * MPI to eval for CAD - pending * Tele to eval for arrhythmia - no evidence of arrhythmia thus far * I spoke with her in detail and answered CV-related questions Clinical Quality Measures AMI/AHF: ASA po Prior to arrival: MELISSA Gil Apr 16, 2021 09:56
[2021-04-16 11:55] VITALS: BP 125/75
--- NOTE | 2021-04-16 12:24 | STRESS TEST ---
DATE OF SERVICE: 04/16/2021 RESTING AND POST REGADENOSON TECHNETIUM-99M TETROFOSMIN SPECT CT IMAGING ORDERING PHYSICIAN: Donna eLon APRN PRIMARY PHYSICIAN: Dr. Rickie Hill. ATTENDING PHYSICIAN: Dr. Middleton. CLINICAL DIAGNOSES: Chest discomfort, shortness of breath. Baseline images were carried out after injection of 9.01 mCi of technetium-99m Tetrofosmin. This was followed by 0.4 mg regadenoson and 28.7 mCi of technetium-99m Tetrofosmin for stress imaging. The electrocardiogram showed sinus rhythm with right bundle branch block at baseline. It did not change significantly with regadenoson infusion. She tolerated the procedure well. Review of images at rest and following stress does not indicate any significant perfusion defects consistent with myocardial ischemia or infarction. Gated images show normal global left ventricular systolic function with normal regional wall motion. Left ventricular ejection fraction is calculated to be 68%. CONCLUSIONS: 1. No evidence of any significant myocardial ischemia or infarction on this study. 2. Normal regional wall motion. 3. Normal global left ventricular systolic function with a calculated ejection fraction of 68%. Job ID: [id number] DocumentID: [id number] Dictated Date: 04/16/2021 10:01:44 Money Laundering Investigator Date: 04/16/2021 12:23:48 Dictated By: MARIO SANTOS MD, MA, FACP, FACC,
--- NOTE | 2021-04-16 12:44 | Discharge Inst-Simple/Standard ---
Discharge Inst-Standard Patient Instructions/Follow Up Plan of Care/Instructions/FU: Please continue to take your medications as written and follow up with Dr Hill and Dr Boswell as scheduled. Activity as Tolerated: Yes Discharge Diet: No Restrictions Return to The Hospital For: Chest pain, shortness of breath, passing out, falls, weakness, if you feel you are getting worse. AJ ALEJANDRA MD Apr 16, 2021 12:44
--- NOTE | 2021-04-16 12:53 | Progress Note - Hospitalist ---
Subjective HPI/CC On Admission Date Seen by Provider: Apr 16, 2021 Time Seen by Provider: 12:50 Pt is a 80yoCF with a PMH of asthma, HTN, hypothyroidism who presented to the ER due to chest pressure, dizziness, and fatigue. She states her symptoms started on 04/11 when she got very dizzy. She has had a history of this with some outpatient workup done. She did not fall or loss consciousness. Later that evening she developed chest pressure that felt like a bubble in her chest. It resolved on it's own but recurred a couple of times. She did not have pain at that time but then on 04/12 she developed actual chest pain that was minimal. She continued to feel dizzy and fatigued all weekend and so yesterday contacted her PCP Dr Hill who recommended she seek evaluation in the ER. She had a normal EKG and troponin but was admitted for chest pain rule out. This morning she states she is feeling well and has no complaints. Subjective/Events-last exam Pt just back from stress test and eating lunch. No complaints. Discussed plan for DC if stress test negative. She requests followup with Dr Boswell is able as an outpatient. Objective Exam Vital Signs Vital Signs Date Time Temp Pulse Resp B/P (MAP) Pulse Ox O2 Delivery O2 Flow Rate FiO2 04/16/21 11:55 36.2 88 18 125/75 (92) 95 Room Air Capillary Refill : Less Than 3 Seconds General Appearance: No Apparent Distress, WD/WN Respiratory: Lungs Clear Cardiovascular: Regular Rate, Rhythm, No Murmur Gastrointestinal: Normal Bowel Sounds, Soft Neurologic/Psychiatric: Alert, Oriented x3 Results/Procedures Lab Patient resulted labs reviewed. Imaging: Reviewed Imaging Report Assessment/Plan Assessment and Plan Assess & Plan/Chief Complaint Chest pain HTN Continue home meds Troponin negative x2 Cardiology consulted, plan for stress test Monitor on telemetry Stress test negative- delayed day due to scheduling Recommended follow up with Dr Boswell and Dr Hill Asthma/COPD Continue home inhalers Doing well Anxiety/Depression Continue home meds Hypothyroidism Continue home meds DVT ppx: Lovenox Clinical Quality Measures AMI/AHF: ASA po Prior to arrival: AJ Swanson MD Apr 16, 2021 12:53
--- NOTE | 2021-04-16 13:27 | Progress Note - Cardiology ---
Cardiology SOAP Progress Note Subjective: Dizziness has improved/resolved No cp or palp or syncope No n/v/d Some gen malaise, chronic Objective: I&O/Vital Signs 04/16/21 04/16/21 04/16/21 04/16/21 04:00 05:01 06:25 07:00 Temp 36.1 36.1 Pulse 82 82 73 Resp 16 16 B/P (MAP) 120/73 (89) 120/73 (89) Pulse Ox 95 95 96 O2 Delivery Room Air Room Air Room Air 04/16/21 04/16/21 04/16/21 04/16/21 07:00 08:00 08:16 10:28 Temp 36.2 Pulse 74 81 Resp 18 14 B/P (MAP) 135/79 (97) 137/98 (111) Pulse Ox 94 94 94 94 O2 Delivery Room Air Room Air Room Air Room Air 04/16/21 11:55 Temp 36.2 Pulse 88 Resp 18 B/P (MAP) 125/75 (92) Pulse Ox 95 O2 Delivery Room Air 04/16/21 00:00 Intake Total 1410 ml Balance 1410 ml Weight (Pounds): 140 Weight (Ounces): 0.0 Weight (Calculated Kilograms): 63.461945 Constitutional: AAO x 3, well-developed, well-nourished Respiratory: No accessory muscle use; other (good, bilateral air entry) Cardiovascular: regular rate-rhythm, S1 and S2, systolic murmur (faint HUY at card base) Gastrointestional: No tender, No soft, No guarding, No rebound; audible bowel sounds Extremities: No clubbing, No cyanosis, No significant edema Neurologic/Psychiatric: alert, normal mood/affect, oriented x 3, other (moves all limbs equally) Skin: No rash on exposed areas, No ulcerations on exposed areas Results/Procedures: Labs Laboratory Tests 04/14/21 13:57 04/15/21 05:08 A/P: Assessment: Dizziness and near-syncope, mostly postural - no further episodes after d/c carvedilol and spironolactone Nonspecific chest discomfort on 04/11/21 - MPI on 04/15/21: no ischemia or infarction, LVEF 68%, no wall motion abnormality Low-normal bp at presentation, now normal H/o COPD, reportedly due to exposure to secondhand smoke (no personal h/o smoking) Plan: * D/c bb and diuretic * Results of MPI reviewed with her * Echo can be done as an outpatient, if needed * If symptoms of near-syncope continue then consider ILR as an outpatient * Outpt f/u advised * I discussed her case with Dr Middleton today Clinical Quality Measures AMI/AHF: ASA po Prior to arrival: MARIO Benitez MD FACP FAC CCDS Apr 16, 2021 13:27
[2021-04-16 15:53] VITALS: BP 125/75
[2021-04-16] MEDS ORDERED: DESMOPRESSIN 0.1 MG PO SCH (21:00)
== END 2021-04-16 15:53 | disposition home or self-care (01) ==
LOC: EDUNIT# 13:52 → ER FS 13:54 → 4TH 16:30 → INTOOBSV 16:30
PROVIDERS: ADMIT Family Medicine; ATTEND Family Medicine
DX: R07.89 Other chest pain (principal); R55 Syncope and collapse; I10 Essential (primary) hypertension; E03.9 Hypothyroidism, unspecified; I45.10 Unspecified right bundle-branch block; J44.9 Chronic obstructive pulmonary disease, unspecified; N39.0 Urinary tract infection, site not specified; F32.9 Major depressive disorder, single episode, unspecified; F41.9 Anxiety disorder, unspecified; Z79.890 Hormone replacement therapy; Z79.899 Other long term (current) drug therapy; Z90.710 Acquired absence of both cervix and uterus; Z79.01 Long term (current) use of anticoagulants
CPT/HCPCS: 36415; 71045; 78452; 80053 ×2; 84484 ×2; 85025 ×2; 93005; 93017; 94640 ×5; 94760 ×3; 99284; A9502; G0378

== ENCOUNTER → 2021-05-06 | Outpatient (CLI) | payer MEDICARE, OTHER ==
[~2021-05-06] MED LIST changes: +ALBU18HF2 INH; +ALBU2.5V4 INH; +ALBUTEROL; +CARV3.122 PO; +CETI10TA17 PO; +CHOL500049 PO; +DESM0.1T5 PO; +FLUT1BLS9; +FLUT1BLS9 IH; +IPRA3AMP31 NEB; +METH1TAB21 PO; +PERP1TAB5 PO; +ZFR20T PO; +ZOLP10TA PO; +vitamin D PO
== END ==
LOC: CARD 10:59
PROVIDERS: ATTEND Internal Medicine Cardiovascular Disease
DX: R06.09 Other forms of dyspnea (principal)
CPT/HCPCS: 93306

== ENCOUNTER 2023-08-23 17:18 | Emergency (ER) | payer MEDICARE, OTHER ==
[~2023-08-23] VITALS: Ht 167 cm; Wt 68.0 kg
[2023-08-23 17:18] VITALS: BP 152/87
[~2023-08-23 17:18] MED LIST changes: +DESM0.1T26 PO; -DESM0.1T5 PO; -VENL150C PO; +VENL150C3 PO; +ZAFI20TA18 PO; -ZFR20T PO
[2023-08-23] MEDS ORDERED: Tetanus/Diphtheria/Pertussis (Acell) ADULT Vaccine 0.5 ML IM ONE (17:45)
--- NOTE | 2023-08-23 18:00 | ED Upper Extremity ---
General Chief Complaint: Trauma-Non Activation Stated Complaint: FALL, SKIN TEAR Nursing Triage Note: ARRIVED VIA EMS FROM [facility] AFTER TRIPPING AND FALLING INTO THE WALL CAUSING SEVERAL SKIN TEARS ON HER LEFT ARM. Source: patient, EMS, RN notes reviewed History of Present Illness Date Seen by Provider: Aug 23, 2023 Time Seen by Provider: 17:34 Initial Comments 82-year-old right-handed female patient with history of Parkinson brought in by EMS because of a fall and left upper extremity skin tear. Patient stated she was in a restaurant and when she stands up she tangled on her feet and lost her balance and falling into the wall without head injury or loss of consciousness. Patient had several left upper extremity skin tear and rated her pain as a mild pain. Patient denies other injuries. Patient is not up-to-date with tetanus immunization. Onset: just prior to arrival Allergies and Home Medications Allergies Coded Allergies: Penicillins (Unverified Allergy, Severe, RASH, 03/06/18) Patient Home Medication List Home Medication List Reviewed: Yes Albuterol Sulfate (Ventolin Hfa) 18 Gm Hfa.aer.ad, 2 PUFF INH QID PRN for SHORTNESS OF BREATH, (Reported) Entered as Reported by: ANDRIY EL on 04/15/21 1028 Ascorbic Acid (Vitamin C) 1,000 Mg Tablet, 1,000 MG PO BID, (Reported) Entered as Reported by: FARIHA LEE on 01/03/19 1345 Cetirizine HCl (Cetirizine HCl) 10 Mg Tablet, 10 MG PO DAILY PRN for ALLERGY SYMPTOMS, (Reported) Entered as Reported by: NINA CEJA on 04/14/21 1454 Cholecalciferol (Vitamin D3) (Vitamin D3) 1,250 Mcg Capsule, 2,500 MCG PO MONTHLY, (Reported) Entered as Reported by: ANDRIY EL on 04/15/21 1028 Desmopressin Acetate (Desmopressin Acetate) 0.1 Mg Tablet, 0.1 MG PO HS, (Reported) Entered as Reported by: NINA CEJA on 04/14/21 1454 Estrogens Conjugated (Premarin) 30 Gm Cr, 1 INCH VG THREE TIMES A WEEK, (Reported) Entered as Reported by: FARIHA LEE on 01/03/19 1345 Fluticasone Propion/Salmeterol (Wixela 250-50 Inhub) 1 Each Blst.w.dev, 1 PUFF IH BID, (Reported) Entered as Reported by: HARRY CASILLAS on 04/14/21 184 Fluticasone Propionate (Flonase Allergy Relief) 9.9 Ml Renovo.susp, 1 SPRAY NSEACH BID PRN for CONGESTION, (Reported) Entered as Reported by: FARIHA LEE on 01/03/19 1345 Ipratropium/Albuterol Sulfate (Iprat-Albut 0.5-3(2.5) mg/3 ml) 3 Ml Ampul.neb, 3 ML NEB QID, (Reported) Entered as Reported by: ANDRIY EL on 04/15/21 1028 Levothyroxine Sodium (Levothyroxine Sodium) 50 Mcg Tablet, 50 MCG PO DAILY, (Reported) Entered as Reported by: FARIHA LEE on 01/03/19 134 Methenamine Hippurate (Methenamine Hippurate) 1 Gm Tablet, 1 GM PO BID, (Reported) Entered as Reported by: HARRY CASILLAS on 04/14/21 184 Perphenazine/Amitriptyline HCl (Perphen-Amitrip 2 mg-25 mg Tab) 1 Each Tablet, 1 TAB PO HS, (Reported) Entered as Reported by: NINA CEJA on 04/14/21 1454 Venlafaxine HCl (Effexor Xr) 150 Mg Cap.er.24h, 150 MG PO BID, (Reported) Entered as Reported by: FARIHA LEE on 01/03/19 1345 Zafirlukast (Zafirlukast) 20 Mg Tablet, 20 MG PO BID, (Reported) Entered as Reported by: NINA CEJA on 04/14/21 1454 Zolpidem Tartrate (Ambien) 10 Mg Tablet, 10 MG PO HS PRN for SLEEP, (Reported) Entered as Reported by: HARRY CASILLAS on 04/14/21 1842 Review of Systems Constitutional: no symptoms reported EENTM: no symptoms reported Respiratory: no symptoms reported Cardiovascular: no symptoms reported Gastrointestinal: no symptoms reported Genitourinary: no symptoms reported Musculoskeletal: see HPI Skin: see HPI Psychiatric/Neurological: See HPI All Other Systems Reviewed Negative Unless Noted: Yes Past Pzzakbw-Kmzttl-Ntzfbe Hx Patient Social History Tobacco Use?: No Substance use?: No Alcohol Use?: No Immunizations Up To Date Tetanus Booster (TDap): Unknown Seasonal Allergies Seasonal Allergies: No Past Medical History Surgeries: Yes Hysterectomy, Nephrectomy, Orthopedic Respiratory: Yes Asthma, COPD Currently Using CPAP: No Currently Using BIPAP: No Cardiac: Yes Hypertension, Syncope Neurological: No Female Reproductive Disorders: Denies 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 Sexually Transmitted Disease: No HIV/AIDS: No Genitourinary: Yes (HAD CANCER OF KIDNEY) UTI-Chronic Gastrointestinal: No Musculoskeletal: No Endocrine: Yes Hypothyroidsim HEENT: No Loss of Vision: Bilateral Hearing Impairment: Denies Cancer: Yes Kidney Did You Recieve Any Treatments: No What Type of Treatment Did You: Surgical Intervention Psychosocial: Yes Depression Integumentary: No Blood Disorders: No Physical Exam Vital Signs Vital Signs - First Documented 08/23/23 17:18 Temp 36.7 Pulse 97 Resp 16 B/P (MAP) 152/87 (108) Pulse Ox 96 O2 Delivery Room Air Capillary Refill : Less Than 3 Seconds Height, Weight, BMI Height: 5'6.00" Weight: 140lbs. 0.0oz. [id number]; 24.00 BMI Method: General Appearance: WD/WN, no apparent distress HEENT: pharynx normal Neck: non-tender, full range of motion, supple Cardiovascular: regular rate, rhythm, no edema, no gallop Respiratory: chest non-tender, lungs clear, normal breath sounds, no respiratory distress, no accessory muscle use Gastrointestinal: normal bowel sounds, non tender, soft Back: normal inspection, no CVA tenderness, no vertebral tenderness Shoulder: normal inspection, non-tender Elbow/Forearm: Left, abrasions, ecchymosis Wrist: Yes normal inspection Hand: normal inspection Skin: ecchymosis Several large skin tear of left arm and forearm without active bleeding Procedures/Interventions Wound Location: Upper Extremities (Left arm and forearm) Wound Length (cm): 10 Wound's Depth, Shape: superficial, irregular Wound Debrided: none Other Closure Supply: Steri Strip 1/2", Steri Strip 1/4", Wound Adhesive Nonadhesive dressing and Coban dressing was applied on top of Dermabond and Steri-Strip skin tear repairs. Progress/Results/Core Measures Results/Orders My Orders Orders - VICKI BELL MD Dipht/Pertuss(Acell)/Tet Adult (Dipht/Pe (08/23/23 17:45) Medications Given in ED Current Medications Medications Dose Ordered Sig/Aruna Route Start Time Stop Time Status Last Admin Dose Admin Diphtheria/ Tetanus/Acell Pertussis 0.5 ml ONCE ONCE IM 08/23/23 17:45 08/23/23 17:46 DC 08/23/23 17:43 0.5 ML Vital Signs/I&O 08/23/23 17:18 Temp 36.7 Pulse 97 Resp 16 B/P (MAP) 152/87 (108) Pulse Ox 96 O2 Delivery Room Air Blood Pressure Mean: 108 Progress Progress Note : Progress Note Patient with mechanical fall and several skin tear of left arm and forearm that was repaired with Dermabond and Steri-Strip and Coban and not asked his if dressing was applied. Patient ambulated well without problem. Patient had tetanus immunization in ER. Patient advised to take Tylenol and ibuprofen as needed for pain and follow-up with primary care physician. Departure Impression Primary Impression: Skin tear of left upper arm without complication Qualified Codes: S41.112A - Laceration without foreign body of left upper arm, initial encounter Disposition: 01 HOME, SELF-CARE Condition: Improved Departure-Patient Inst. Decision time for Depature: 17:58 Referrals: DELMY ROACH MD (PCP/Family) Primary Care Physician Patient Instructions: Skin Abrasions, Wound Care ED, Skin glue for minor cuts Add. Discharge Instructions: Keep wound clean and dry May take Tylenol or ibuprofen as needed for pain Follow-up with your primary care physician in 3 to 5 days Return to ER as needed All discharge instructions reviewed with patient and/or family. Voiced understanding. VICKI BELL MD Aug 23, 2023 18:00
== END 2023-08-23 18:08 | disposition home or self-care (01) ==
LOC: ER FS 17:18 → EDUNIT# 17:18 → ER FS 18:08
DX: S51.812A Laceration without foreign body of left forearm, initial encounter (principal); Z23 Encounter for immunization; W01.198A Fall on same level from slipping, tripping and stumbling with subsequent striking against other object, initial encounter; Y92.511 Restaurant or cafe as the place of occurrence of the external cause
CPT/HCPCS: 12011; 90715